=== PATIENT | male | born 1995 | race Caucasian/White ===

== ENCOUNTER 2020-06-12 02:37 | Emergency (ER) | payer OTHER ==
[~2020-06-12] VITALS: Ht 188 cm; Wt 60.0 kg
[2020-06-12] MEDS ORDERED: IV RINGERS SOLUTION,LACTATED 1,000 ML IV SCH (03:30)
[2020-06-12] MEDS ORDERED: SUCRALFATE 1 GM TABLET. PO ONE (03:30)
[2020-06-12] MEDS ORDERED: FAMOTIDINE 20 MG/2 ML VIAL IVP ONE (03:30)
[2020-06-12] MEDS ORDERED: MAGNESIUM HYDROXIDE 2,400 MG/30 ML ORAL.SUSP. PO ONE (03:30)
--- NOTE | 2020-06-12 03:30 | PHYS DOC ---
Past History Past Medical History: Anxiety, Depression, Migraines Past Surgical History: No Surgical History Smoking: Cigarettes Alcohol Use: None Drug Use: None General Adult EDM: Chief Complaint: OVERDOSE HPI: HPI: Patient is a 25 year old male who presents with above history and attempt to kill himself by taking in excess 20-30x 200mg tablet of Ibuprofen. Patient admits to suicide attempt by taking overdose of ibuprofen. Patient denies other drug use. Patient states he took meds approximately 35 minutes ago. . Patient recently has broke up with girlfriend and she has not allowed him to visit with his daughter. Patient states he has become very depressed about these recent events in his life. Patient is gainfully employed. Patient denies illicit drug use. Patient has no current legal issues. Reportedly has attempted suicide previously more than 50 times. Has cut himself in the past, jumped off a jordyn, has overdosed. Patient has past medical history of migraines, anxiety, panic disorder, depression. Patient does smoke cigarettes. Patient denies other drug use. Patient does smoke tobacco. Review of Systems: Review of Systems: Constitutional: Denies fever or chills Eyes: Denies change in visual acuity HENT: Denies nasal congestion or sore throat Respiratory: Denies cough or shortness of breath Cardiovascular: Denies chest pain or edema GI: Denies abdominal pain, nausea, vomiting, bloody stools or diarrhea : Denies dysuria Musculoskeletal: Denies back pain or joint pain Integument: Denies rash Neurologic: Denies headache, focal weakness or sensory changes Endocrine: Denies polyuria or polydipsia Lymphatic: Denies swollen glands Psychiatric: Denies depression or anxiety Family History: Family History: Noncontributory to current presentation Current Medications: Current Meds: Current Medications Medications (Trade) Dose Ordered Sig/Kimo Start Time Stop Time Status Last Admin Dose Admin Famotidine (Pepcid Vial) 20 mg 1X ONCE 06/12/20 03:30 06/12/20 03:31 Lactated Ringer's 1,000 ml @ 1,000 mls/hr Q1H 06/12/20 03:30 06/12/20 04:29 Magnesium Hydroxide (Milk Of Magnesia) 2,400 mg 1X ONCE 06/12/20 03:30 06/12/20 03:31 Sucralfate (Carafate) 1 gm 1X ONCE 06/12/20 03:30 06/12/20 03:31 Allergies: Allergies: Allergies Coded Allergies Type Severity Reaction Last Updated Verified No Known Drug Allergies 07/23/15 No Physical Exam: PE: Constitutional: Well developed, well nourished, in acute emotional distress, non-toxic appearance. [] HENT: Normocephalic, atraumatic, bilateral external ears normal, oropharynx moist, no oral exudates, nose normal. [] Eyes: PERRLA, EOMI, conjunctiva normal, no discharge. [] Neck: Normal range of motion, no tenderness, supple, no stridor. [] Cardiovascular: Bradycardia heart rate regular rhythm, no murmur [] Lungs & Thorax: Bilateral breath sounds equal apex with few scattered wheezes on auscultation [] Abdomen: Bowel sounds normal, soft, no tenderness, no masses, no pulsatile masses. [] Skin: Warm, dry, no erythema, no rash. Tattoos Back: No tenderness, no CVA tenderness. [] Extremities: No tenderness, no cyanosis, no clubbing, ROM intact, no edema. [] Neurologic: Alert and oriented X 3, normal motor function, normal sensory function, no focal deficits noted. [] Psychologic: Affect anxious, judgement normal, mood depressed. [] EKG: EKG: My interpretation EKG shows a sinus bradycardia at 51 bpm. There is right axis, incomplete bundle branch block. But no findings of acute STEMI of contralateral changes. [] Radiology/Procedures: Radiology/Procedures: [] Heart Score: Risk Factors: Risk Factors: DM, Current or recent (<one month) smoker, HTN, HLP, family history of CAD, obesity. Risk Scores: Score 0 - 3: 2.5% MACE over next 6 weeks - Discharge Home Score 4 - 6: 20.3% MACE over next 6 weeks - Admit for Clinical Observation Score 7 - 10: 72.7% MACE over next 6 weeks - Early Invasive Strategies Course & Med Decision Making: Course & Med Decision Making Pertinent Labs and Imaging studies reviewed. (See chart for details) See PAT report. See Poison Control Recommendations- Impression: 1. Suicide Attempt- ( reportedly by taking Ibuprofen 20-30 tab 200- however only + for Acetaminophen) 2. Acetaminophen Level= 147. 4 Arrival- Repeat 4 Hr. Level = 121.2 3. History of depression 4. History of anxiety 5. History of panic disorder 6. History of migraines [] Dragon Disclaimer: Dragon Disclaimer: This electronic medical record was generated, in whole or in part, using a voice recognition dictation system. Departure Departure: Referrals: PCP,JAMES (PCP) JEEVAN GALLO MD Jun 12, 2020 03:30
[2020-06-12 03:54] LABS: BASO # 0.1 x10^3/uL (0.0-0.2); BASO % 1 % (0-3); EOS % 0 % (0-3); HEMATOCRIT 41.9 % (39.0-53.0); HEMOGLOBIN 14.4 g/dL (13.0-17.5); LYMPH # 3.1 x10^3/uL (1.0-4.8); LYMPH % 45 % (24-48); MEAN CORPUSCULAR HEMOGLOBIN 29 pg (25-35); MEAN CORPUSCULAR HGB CONC 34 g/dL (31-37); MEAN CORPUSCULAR VOLUME 84 fL (79-100); MONO # 0.6 x10^3/uL (0.0-1.1); MONO % 9 % (0-9); NEUT # 3.1 x10^3uL (1.8-7.7); NEUT % 45 % (31-73); PLATELET COUNT 191 x10^3/uL (140-400); RED BLOOD COUNT 4.97 x10^6/uL (4.30-5.70); RED CELL DISTRIBUTION WIDTH 12.8 % (11.5-14.5); WHITE BLOOD COUNT 6.9 x10^3/uL (4.0-11.0)
[2020-06-12 04:13] LABS: CREATININE 0.8 mg/dL (0.7-1.3); GFR 117.8; POTASSIUM 3.7 mmol/L (3.5-5.1)
[2020-06-12 04:18] LABS: ETHANOL < 10 mg/dL (0-10); SALIC < 2.8 mg/dL (2.8-20.0)
[2020-06-12 04:19] LABS: ACETAMIN 147.4 mcg/mL (10-30)
[2020-06-12 04:25] LABS: ALBUMIN 4.3 g/dL (3.4-5.0); DIRECT BILIRUBIN 0.2 mg/dL (0.0-0.2); TOTAL BILIRUBIN 0.9 mg/dL (0.2-1.0); TOTAL PROTEIN 7.5 g/dL (6.4-8.2)
--- NOTE | 2020-06-12 04:27 | RAD ---
XR ABDOMEN COMP ACUTE History: Reason: pain, od / Spl. Instructions: / History: Technique: Upright and supine views of the abdomen. Comparison: None. Findings: No consolidation or pleural effusion. No pneumothorax. Normal heart size. No pneumoperitoneum. Mild small bowel gas. Air and stool throughout the colon. Mild proximal colonic stool burden. Impression: 1. Nonobstructed bowel gas pattern. Electronically signed by: Aiden Dennison DO (06/12/2020 4:24 AM) [id number]
[2020-06-12 05:14] LABS: BACTERIA,URINE 0 /HPF (0-FEW); BILIRUBIN,URINE NEG (NEG); CLARITY,URINE CLEAR; COLOR,URINE YELLOW; GLUCOSE,URINE NEG (NEG); NITRITE,URINE NEG (NEG); RBC,URINE 0 /HPF (0-2); SQUAMOUS EPITHELIAL CELL,UR OCC /LPF; UROBILINOGEN,URINE 0.2 mg/dL (0.2 mg/dL); WBC,URINE OCC /HPF (0-4)
[2020-06-12 05:21] LABS: BARBITURATES NEG (NEG); BENZODIAZEPINES NEG (NEG); CANNABINOIDS NEG (NEG); COCAINE NEG (NEG); METHADONE NEG (NEG); OPIATES NEG (NEG); PHENCYCLIDINE NEG (NEG)
[2020-06-12 05:27] LABS: AMPHETAMINE/METHAMPHETAMINE NEG (NEG)
[2020-06-12 07:32] LABS: ACETAMIN 121.2 mcg/mL (10-30); SALIC < 2.8 mg/dL (2.8-20.0)
[2020-06-12] MEDS ORDERED: ONDANSETRON PF 4 MG/2 ML VIAL. ONE (10:18)
[2020-06-12] MEDS ORDERED: ONDANSETRON PF 4 MG/2 ML VIAL. IVP ONE (10:30)
--- NOTE | 2020-06-13 06:36 | EKG ---
[address] [address] Test Date: 2020-06-12 Test Time: 03:57:46 Pat Name: GIGI PRETTY Department: Room: Gender: M [employer]: : 1995 Requested By: JEEVAN GALLO Order Number: [id number] Reading MD: Measurements Intervals [place] Rate: 51 P: 69 TN: 160 QRS: 95 QRSD: 102 T: 71 QT: 410 QTc: 380 Interpretive Statements SINUS RHYTHM RIGHTWARD AXIS INCOMPLETE RIGHT BUNDLE BRANCH BLOCK OTHERWISE NORMAL ECG RI6.02 No previous ECG available for comparison
[2020-06-13 10:00] VITALS: BP 105/54
[2020-06-13 12:35] LABS: ACETAMIN < 2.0 mcg/mL (10-30)
== END 2020-06-13 14:49 | disposition short-term general hospital (02) ==
LOC: ER 02:37
DX: T39.312A Poisoning by propionic acid derivatives, intentional self-harm, initial encounter (principal); Z20.822 Contact with and (suspected) exposure to COVID-19; F32.9 Major depressive disorder, single episode, unspecified; F41.9 Anxiety disorder, unspecified; G43.909 Migraine, unspecified, not intractable, without status migrainosus; F41.0 Panic disorder [episodic paroxysmal anxiety]; F17.210 Nicotine dependence, cigarettes, uncomplicated; Y92.89 Other specified places as the place of occurrence of the external cause
CPT/HCPCS: 36415; 74022; 80048; 80076; 80307; 80329; 81001; 82550; 83690; 83735; 83880; 84443; 84484; 85025; 85610; 85730; 86705; 86709; 86803; 87340; 87426; 93005; 96361; 96374; 96375; 99285; G0480; J2405; J3490; J7120; U0003